=== PATIENT | male | born 1980 | race Caucasian/White ===

== ENCOUNTER 2021-06-07 18:25 | Emergency (ER) | payer BC ==
[~2021-06-07] VITALS: Ht 190.5 cm; Wt 113.6 kg
[2021-06-07 18:35] VITALS: TEMP 97.9
[2021-06-07] MEDS ORDERED: PREDNISONE20 MG PO (19:20)
[2021-06-07 19:30] VITALS: BP 168/88; PULSE 93
== END 2021-06-07 19:30 | disposition home or self-care (01) ==
LOC: COL.ER 18:25
DX: J45.901 Unspecified asthma with (acute) exacerbation (principal); Z28.310 Unvaccinated for COVID-19
CPT/HCPCS: J7512